=== PATIENT | female | born 1975 | race Caucasian/White ===

== ENCOUNTER 2020-10-03 19:17 | Emergency (ER) | payer OTHER ==
[~2020-10-03] VITALS: Ht 157.5 cm; Wt 99.8 kg
[~2020-10-03 19:17] MED LIST: BENZ100A PO; Keflex500 MG PO; NEOPOLHYD OS; Zofran4 MG PO
[2020-10-03 20:16] LABS: BASOPHILS ABSOLUTE AUTO 0.01 K/mm3 (0.00-0.23); BASOPHILS PERCENT AUTO 0 % (0-2); EOSINOPHILS PERCENT AUTO 0 % (0-6); Hematocrit 44.1 % (33.0-51.0); Hemoglobin 15.9 g/dL (11.5-16.0); IMMATURE GRAN ABSOLUTE AUTO 0.02 K/mm3 (0.00-0.10); IMMATURE GRAN PERCENT AUTO 0 % (0-1); LYMPHOCYTES ABSOLUTE AUTO 0.67 K/mm3 (0.84-5.20); LYMPHOCYTES PERCENT AUTO 12 % (21-46); MONOCYTES ABSOLUTE AUTO 0.64 K/mm3 (0.16-1.47); MONOCYTES PERCENT AUTO 11 % (4-13); Mean Corpuscular HGB 31.2 pg (26.0-34.0); Mean Corpuscular HGB Conc 36.1 g/dL (31.5-36.5); Mean Corpuscular Volume 87 fL (80-100); Mean Platelet Volume 9.5 fL (9.1-12.4); NEUTROPHILS ABSOLUTE AUTO 4.46 K/mm3 (1.96-9.15); NEUTROPHILS PERCENT AUTO 77 % (41-73); Platelet Count 186 K/mm3 (150-400); RDW Coefficient Variation 11.8 % (11.7-14.2); RDW Standard Deviation 37.6 fL (35.1-46.3)
[2020-10-03 20:34] LABS: Alanine Aminotransfer (ALT/SGP 60 U/L (12-78); Albumin, Blood 3.6 g/dL (3.4-5.0); Albumin/Globulin Ratio 0.9 (0.8-1.8); Alk Phos 181 U/L (50-136); Anion Gap 11 mmol/L (6-16); Aspartate Aminotrans (AST/SGOT 54 U/L (12-37); Bilirubin, Total 0.9 mg/dL (0.1-1.0); Blood Urea Nitrogen 7 mg/dL (8-24); Bun/Creatinine Ratio 8.8 (12.0-20.0); CO2, Blood 24 mmol/L (21-32); Calcium, Blood 8.5 mg/dL (8.5-10.1); Chloride, Blood 102 mmol/L (98-108); Creatinine, Blood 0.79 mg/dL (0.40-1.00); Globulin, Blood 4.1 g/dL (2.2-4.0); Glomerular Filtration Rate >60 (60-); Glucose, Blood 103 mg/dL (70-99); Potassium, Blood 2.6 mmol/L (3.5-5.5); Sodium, Blood 137 mmol/L (136-145); Total Protein, Blood 7.7 g/dL (6.4-8.2)
[2020-10-03] MEDS ORDERED: IMODIUM A-D2 M1 PO (23:06)
[2020-10-03] MEDS ORDERED: ONDA4ODT SL (23:06)
[2020-10-03] MEDS ORDERED: K-Dur20 MEQ PO (23:06)
[2020-10-04 01:40] LABS: Chloride (POC) 102 mmol/L (98-108); Creatinine (POC) 0.5 mg/dL (0.6-1.0); Glucose (ISTAT POC) 108 mg/dL (70-99); Hemoglobin (POC) 13.3 g/dL (12.0-16.0); Potassium (POC) 2.8 mmol/L (3.5-5.5); Sodium (POC) 139 mmol/L (135-148); Total CO2 (POC) 20 mmol/L (21-32)
[2020-10-04 01:59] LABS: SARS-Cov-2 (COVID-19) PCR, MMC POSITIVE (NEGATIVE)
== END 2020-10-04 02:36 | disposition home or self-care (01) ==
LOC: ER 19:17
PROVIDERS: Emergency Medicine; Physician Assistant
DX: U07.1 COVID-19 (principal); E87.6 Hypokalemia; Z88.5 Allergy status to narcotic agent; Z88.8 Allergy status to other drugs, medicaments and biological substances
CPT/HCPCS: 71045; 71260; 80047; 80053; 83690; 84145; 85014; 85025; 96374; 96375; 99285-25; A9270; J2405; J3480; Q9967; U0004

== ENCOUNTER 2024-02-24 06:10 | Day surgery (SDC) | payer OTHER ==
[~2024-02-24] VITALS: Ht 157.5 cm; Wt 108.5 kg
[~2024-02-24 06:10] MED LIST changes: +IMODIUM A-D2 M1 PO; +K-Dur20 MEQ PO; +Lactated Ringer's 1,000 ML IV ONE; +ONDA4ODT SL
[2024-02-24] MEDS ORDERED: propofoL 20 ML IV ONE (06:25)
[2024-02-24] MEDS ORDERED: Ondansetron HCl 2 MG / ML 2ML Vial ONE (06:25)
[2024-02-24] MEDS ORDERED: Ketorolac Tromethamine 30mg Vial ONE (06:25)
[2024-02-24] MEDS ORDERED: Dexamethasone Sod Phos 10 MG/ML 1ML VIAL ONE (06:25)
[2024-02-24] MEDS ORDERED: FentaNYL Citrate 50 MCG/ML 2 ML Injection ONE (06:25)
[2024-02-24] MEDS ORDERED: Lactated Ringer's 1,000 ML IV ONE (06:28)
--- NOTE | 2024-02-24 08:31 | NUR ---
02/24/24 0831 Melody Roe FLUID VOLUME DEFICIT 20ML
[2024-02-24 08:51] VITALS: BP 142/75
--- NOTE | 2024-02-24 09:36 | NUR ---
02/24/24 0936 Madhav Covarrubias PT VOIDED PRIOR TO D/C WITHOUT COMPLICATION.
== END 2024-02-24 09:30 | disposition home or self-care (01) ==
LOC: ORSCSDS 06:10
PROVIDERS: Obstetrics & Gynecology
PROC: 0UDB8ZX Extraction of Endometrium, Via Natural or Artificial Opening Endoscopic, Diagnostic (ICD-10-PCS; principal; 2024-02-24 07:30)
DX: N84.1 Polyp of cervix uteri (principal); Q85.00 Neurofibromatosis, unspecified; Z87.898 Personal history of other specified conditions
CPT/HCPCS: 88305; J1100; J1885; J2405; J2704; J3010; J7120